=== PATIENT | male | born 1975 | race Two or more races ===

== ENCOUNTER 2020-08-09 20:21 | Emergency (ER) | payer OTHER ==
[~2020-08-09] VITALS: Ht 185.4 cm; Wt 72.6 kg
[2020-08-09] MEDS ORDERED: Lidocaine 1% MPF 10mg/ml 5ml INJ ONE (20:45)
[2020-08-09] MEDS ORDERED: Tetanus/Diptheria/Pertussis IM ONE (20:45)
[2020-08-09] MEDS ORDERED: Bacitracin Oint UD TOPIC ONE (20:45)
[2020-08-09 20:53] VITALS: BP 136/59
--- NOTE | 2020-08-09 21:16 | Emergency Room Report ---
History of Present Illness General Chief Complaint: Laceration Source: Patient Present Illness HPI The bottle broke and the patient tried to prevent this. A glass shard cut between his middle finger of his right hand. The bleeding was controlled. He is uncertain of his last tetanus shot. He is right-handed. The pain is rated 6/10 in burning and sharp. It does not radiate. He denies any numbness or limi tation of range of motion. He took Tylenol prior to presenting to the emergency department. The patient tested negative for Covid 2 weeks ago. He is regularly tested. He denies any Covid symptoms. 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 Reviewed Nursing Documentation: PMH: Agreed; PSxH: Agreed Nursing Documentation-PMH Past Medical History: No Stated History Review of Systems Constitutional: Denies: fever Musculoskeletal: Reports: see HPI Skin: Reports: see HPI Neurological: Reports: see HPI Hematologic/Lymphatic: Reports: see HPI Physical Exam Vital Signs Date Time Temp Pulse Resp B/P (MAP) Pulse Ox O2 Delivery O2 Flow Rate FiO2 08/09/20 20:25 98.1 100 20 136/59 (84) 97 Room Air Sp02 EP Interpretation: reviewed, normal General Appearance: well appearing, no apparent distress, GCS 15 Head: normocephalic Eyes: bilateral eye normal inspection, bilateral eye PERRL ENT: other - Wearing a mask Neck: normal inspection, full range of motion Respiratory: normal inspection Cardiovascular #1: regular rate, rhythm Cardiovascular #2: 2+ radial (R) - Good capillary refill Gastrointestinal: normal inspection Musculoskeletal: gait/station normal, normal range of motion, digits/nails normal Neurologic: alert, distal neuro normal, grossly normal Psychiatric: mood/affect normal Skin: normal color, warm/dry, laceration - Base of middle finger 2 cm Procedures Laceration/Wound Repair Laceration/Wound Repair : Consent: Verbal Wound Location: upper extremity Wound's Depth, Shape: superficial Wound Length (cm): 2 Wound Explored: clean - Base of laceration viewed without foreign body Irrigated w/ Saline (ccs): 10 Betadine Prep?: Yes Anesthesia: 1% Lidocaine Volume Anesthetic (ccs): 3 Wound Debrided: None Wound Repaired With: sutures Suture Size/Type: 5:0, nylon Number of Sutures: 3 Layer Closure?: No Sterile Dressing Applied?: Yes Splint Applied?: No Patient Tolerated: Well Complications: None Medical Decision Making Diagnostic Impression: Primary Impression: Laceration of right hand Qualified Codes: S61.411A - Laceration without foreign body of right hand, initial encounter ER Course Patient presents with glass laceration of his right hand. Tetanus indicated. Sutures indicated. See procedure note. Patient stable for outpatient observation and treatment. Last Vital Signs Date Time Temp Pulse Resp B/P (MAP) Pulse Ox O2 Delivery O2 Flow Rate FiO2 08/09/20 21:23 98.2 66 20 118/72 100 Room Air Status: improved Disposition: HOME, SELF-CARE Condition: Improved Referrals: NOT CHOSEN IPA/,REFERRING (PCP) Juan Carlos Venegas MD Aug 09, 2020 21:16
[2020-08-09 21:23] VITALS: BP 118/72
--- NOTE | 2020-08-09 21:25 | NUR ---
ER DISCHARGE NOTE: Patient is cleared to be discharged per ERMD, pt is aox4, on room air, with stable vital signs. pt was given dc and instructions, pt was able to verbalize understanding, pt id band removed without complications. pt is able to ambulate with steady gait. pt took all belongings.
== END 2020-08-09 21:25 | disposition home or self-care (01) ==
LOC: EMR 20:48
DX: S61.212A Laceration without foreign body of right middle finger without damage to nail, initial encounter (principal); W25.XXXA Contact with sharp glass, initial encounter; Y93.89 Activity, other specified; Y92.9 Unspecified place or not applicable
CPT/HCPCS: 90471; 90715; 99282

== ENCOUNTER 2020-08-17 13:07 | Emergency (ER) | payer OTHER ==
[~2020-08-17] VITALS: Ht 182.9 cm; Wt 72.6 kg
--- NOTE | 2020-08-17 13:28 | Emergency Room Report ---
History of Present Illness General Chief Complaint: Wound Recheck/Suture Removal Source: Patient Present Illness HPI Patient had laceration repair between his fingers on August 09. He has been working and the hand has gotten wet. He denies any fevers or chills. There is no drainage. Patient is here for suture removal. 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: Agreed; PSxH: Agreed Nursing Documentation-PMH Past Medical History: No Stated History Review of Systems Constitutional: Reports: see HPI Skin: Reports: see HPI Physical Exam Vital Signs Date Time Temp Pulse Resp B/P (MAP) Pulse Ox O2 Delivery O2 Flow Rate FiO2 08/17/20 13:12 98.1 68 15 110/72 (85) 99 Room Air Sp02 EP Interpretation: reviewed, normal General Appearance: well appearing, no apparent distress, GCS 15 Head: normocephalic Eyes: bilateral eye normal inspection, bilateral eye PERRL ENT: other - Wearing a mask Respiratory: normal inspection Musculoskeletal: gait/station normal, other - Full range of motion Neurologic: alert, normal inspection Psychiatric: mood/affect normal Skin: wd healing/no infection noted - Slightly dehisced area with healing from below. Wound is slightly moist Procedures Additional Procedure Procedure Narrative Sutures removed Patient tolerated well Medical Decision Making Diagnostic Impression: Primary Impression: Encounter for removal of sutures ER Course Patient here for suture removal 8 days after sutures. Sutures removed. Patient tolerated well. Last Vital Signs Date Time Temp Pulse Resp B/P (MAP) Pulse Ox O2 Delivery O2 Flow Rate FiO2 08/17/20 15:24 98.1 15 110/72 99 Room Air 08/17/20 13:12 68 Status: improved Disposition: HOME, SELF-CARE Condition: Stable Juan Carlos Venegas MD Aug 17, 2020 13:28
--- NOTE | 2020-08-17 13:35 | NUR ---
ED Nurse Note:sutures were removed by ER MD Pt cleared by health care Provider for discharge. DC instructions was given and explained to pt and verbalized understanding of teachings. All medical deviecs such as ID band removed. Pt is AAO x4, ambulatory and left with all personal belongings.
[2020-08-17 15:24] VITALS: BP 110/72
== END 2020-08-17 13:40 | disposition home or self-care (01) ==
LOC: EMR 13:16
DX: Z48.02 Encounter for removal of sutures (principal); S61.411D Laceration without foreign body of right hand, subsequent encounter; X58.XXXD Exposure to other specified factors, subsequent encounter
CPT/HCPCS: 99281